=== PATIENT | female | born 1950 | race Two or more races ===

== ENCOUNTER 2024-10-26 09:46 | Emergency (ER) | payer OTHER, SELFPAY ==
--- NOTE | ~2024-10-26 | XR_ITS ---
CLINICAL HISTORY: R shoulder pain s p heavy lifting 4 view right shoulder Comparison: None Findings: No fractures or dislocations. No significant arthritic change. No erosions. No radiopaque foreign body. There is calcific tendinitis adjacent to the greater tuberosity. IMPRESSION: There is calcific tendinitis adjacent to the greater tuberosity. This document has been electronically signed by: Humberto Aguero MD on 10/26/2024 11:08:08
[2024-10-26 09:50] VITALS: BP 127/80; PULSE 87; RESP 16; TEMP 35.7; O2SAT 96; BMI 33.8
--- NOTE | 2024-10-26 10:07 | ED_ITS ---
HPI - Extremity Problem General Chief complaint: Extremity Injury, Upper Stated complaint: l shoulder pain Time Seen by Provider: 10/26/24 10:07 Source: patient and hydropulper operator (surinamese) Mode of arrival: ambulatory Limitations: language barrier (surinamese) History of Present Illness ED Provider: ANNE NOONAN PA-C HPI Narrative: 73-year-old female with pmhx significant for DM, HTN, HLD presents to the ED today for evaluation of right-sided neck/shoulder pain x3 weeks. She states the pain began after lifting/ moving a heavy table at home. Pain is localized to right neck/ shoulder region. Does not extend down her RUE. Pain is worse with movement of the neck and shoulder. Denies any decreased range of motion. She was evaluated at for this 1 week ago. She was prescribed a muscle relaxer which she has been taking without improvement. Denies blunt injury/trauma. Denies headache, dizziness, vision changes, chest pain, palpitations, SOB. scaffold builder utilized throughout visit to communicate with patient. Related Data Previous Rx's ?Medication ?Instructions ?Recorded lidocaine 5 % topical patch 1 patch topical DAILY #15 ea 10/26/24 (Lidoderm) prednisone 20 mg tablet 40 mg (2 x 20 mg) PO DAILY 5 days 10/26/24 #10 tabs Allergies Allergy/AdvReac Type Severity Reaction Status Date / Time No Known Allergies Allergy Verified 10/26/24 09:52 Review of Systems Review of Systems: Yes all other systems are reviewed and are negative PMFSH Past Medical History Attestation statement: The following information was validated with the patient. Source: old records reviewed and nursing notes reviewed Social History Social History Advance Directives: No Advance Directives Information Provided: Yes Physical Exam Vital Signs: Vital Signs: Last Vital Signs Temp 96.3 F L 10/26/24 09:50 Pulse 87 10/26/24 09:50 Resp 16 10/26/24 09:50 BP 127/80 10/26/24 09:50 Pulse Ox 96 10/26/24 09:50 O2 Del Method Room Air 10/26/24 09:50 BMI result Body Mass Index 33.8 vital signs stable General: Well appearing, in no acute distress. Skin: Warm, dry, intact. No rashes or lesions. Head: Normocephalic, atraumatic. EENT: Hearing is intact b/l. Conjunctiva clear. PERRLA. EOM intact. Moist mucous membranes.? Cardiac: Chest wall symmetric. RRR Lungs: Normal respiratory effort without accessory muscle use. CTA bilaterally Back: No midline spinous or paraspinal tenderness. No step off deformity. Ext: +no overlying deformity, skin changes or swelling to the right shoulder. Full ROM intact to right shoulder with minimal pain on abduction. Coiled Coil Inspector strength intact. Full ROM intact to C-spine with minimal pain on leftward motion. no midline spinous tenderness or step off. ttp along right cervical paraspinal muscles/ trapezius and around right AC joint. no crepitus or palpable deformity. 2+ radial/ ulnar pulse intact. Neuro: AOx3. Normal speech. Ambulating with steady gait. Course Course Course Narrative: xr right shoulder showing calcific tendonitis adjacent to the greater tuberosity. patient on elquis - will hold on NSAIDs. after discussion with patient, will prescribe short course of prednisone and lidocaine patches. Advised to monitor her blood sugar at home as she was diabetic. Advised to discontinue prednisone use if sugars become too elevated. Informed patient that she will need to follow up with her primary care provider for PT and likely corticosteroid injections. She verbalizes understanding. Patient has remained stable throughout ED visit today. Discussed worrisome signs and symptoms and when to return to the ED. All questions answered at this time. Patient is agreeable with disposition and stable for discharge. Medications Administered Discontinued Medications Generic Name Dose Route Start Last Admin Trade Name Shyam PRN Reason Stop Dose Admin Acetaminophen 650 mg 10/26/24 10:50 10/26/24 10:53 Acetaminophen 325 Mg Tablet PO 10/26/24 10:51 650 mg ONCE ONE Administration Lidocaine 1 patch 10/26/24 10:23 10/26/24 10:53 Lidocaine 4 % Patch Adh..Patch TRANSDERMA 10/26/24 10:24 1 patch ONCE ONE Administration Protocol Medical Decision Making Medical Decision Making MDM Narrative: 73-year-old female with pmhx significant for DM, HTN, HLD presents to the ED today for evaluation of right-sided neck/shoulder pain x3 weeks. Vital signs stable. Nontoxic appearing and in no acute distress. On exam, no overlying deformity, skin changes or swelling to the right shoulder. Full ROM intact to right shoulder with minimal pain on abduction. Coiled Coil Inspector strength intact. Full ROM intact to C-spine with minimal pain on leftward motion. no midline spinous tenderness or step off. ttp along right cervical paraspinal muscles/ trapezius and around right AC joint. no crepitus or palpable deformity. 2+ radial/ ulnar pulse intact. Differential diagnosis includes arthritis, tendonitis, bursitis, MSK sprain/strain, muscle spasm. Lower suspicion for fracture or dislocation. Presentation not consistent with gout. pseudogout, septic joint, lyme arthritis. Unlikely DVT, nv compromise, threat to limb. Unlikely ACS. Plan for xrays, pain control, and re-evaluation. Differential Diagnosis Differential Diagnoses: The differential diagnosis associated with the presentation includes as above. Admission/Observation not indicated. Independent Interpretation I performed an independent interpretation of an: Plain X-Ray Interpretation: xr right shoulder without fracture or dislocation Radiology Impression Discussion of test interpretation with radiology: I have reviewed the radiologist's reading. Radiologist Impression: Procedure(s): XR shoulder RT min 2V Accession Number(s): [id number] cc: Physician,Unknown ; Anne Noonan~ CLINICAL HISTORY: R shoulder pain s p heavy lifting 4 view right shoulder Comparison: None Findings: No fractures or dislocations. No significant arthritic change. No erosions. No radiopaque foreign body. There is calcific tendinitis adjacent to the greater tuberosity. IMPRESSION: There is calcific tendinitis adjacent to the greater tuberosity. This document has been electronically signed by: Humberto Aguero MD on 10/26/2024 11:08:08 Prescription Management I considered prescription management with: Pain Medication and Other (prednisone, lido patch) Chronic Conditions Patient?s care impacted by: Diabetes and Hypertension Social Determinants Patient?s care significantly limited by Social Determinants of Health including: Other Social Determinant of Health Critical Care Time Critical Care Time Critical Care Time: No Discharge Plan Discharge Clinical Impression: Calcific tendonitis of right shoulder Patient Disposition: Home, Self-Care Instructions: Calcific Tendinitis (ED) Additional Instructions: The xray of your right shoulder shows calcific tendonitis. see home care instructions. Since you cannot take NSAIDs, I am sending Prednisone to your pharmacy to help with inflammation. Take this as prescribed over the next 5 days. As discussed, monitor your blood sugar while taking this as this can elevate blood sugar. If you notice an increase in your sugars, please discontinue use. You may take Tylenol at home for pain/ discomfort. I am sending lidocaine patches to your pharmacy. Apply these as prescribed. You need to follow up with your primary care provider. You will likely require physical therapy. Return with any new or worsening symptoms. In the case of an emergency call 911. Prescriptions: New lidocaine [Lidoderm] 5 % adhesive patch,medicated 1 patch topical DAILY Qty: 15 0RF Rx Instructions: leave on most painful area for up to 12 hrs prednisone 20 mg tablet 40 mg PO DAILY 5 Days Qty: 10 0RF Referrals: Physician,Unknown J [Primary Care Provider] - Print Language: Finnish
[2024-10-26] MEDS: Acetaminophen 325 MG TABLET 650 MG PO (10:53)
[2024-10-26] MEDS: Lidocaine 4 % Patch ADH..PATCH 1 PATCH TRANSDERMA (10:53)
[2024-10-26 11:54] VITALS: BP 127/80; PULSE 87; RESP 16; TEMP 36; O2SAT 96
== END 2024-10-26 11:54 | disposition home or self-care (01) ==
PROVIDERS: Emergency Provider Internal Medicine
DX: M77.8 Other enthesopathies, not elsewhere classified (principal); M25.511 Pain in right shoulder
CPT/HCPCS: 73030; 99283

== ENCOUNTER → 2024-10-26 10:23 | Outpatient (BNV) | payer OTHER, SELFPAY | PROVIDERS: Emergency Provider Internal Medicine; Visit Provider Radiology Diagnostic Radiology | DX: M75.31 Calcific tendinitis of right shoulder (principal) | CPT/HCPCS: 73030 ==

== ENCOUNTER 2025-03-23 09:49 | Emergency (ER) | payer OTHER, SELFPAY ==
[2025-03-23] VITALS (8 sets, daily range): BP systolic 119–154; BP diastolic 63–96; PULSE 90–140; RESP 15–19; TEMP 36.3–36.9; O2SAT 96–99; BMI 32.4
--- NOTE | 2025-03-23 | ECG_ITS ---
Test Reason : ABD PAIN Blood Pressure : */* mmHG Vent. Rate : 119 BPM Atrial Rate : * BPM P-R Int : * ms QRS Dur : 70 ms QT Int : 306 ms P-R-T Axes : * 11 19 degrees QTcB Int : 430 ms Atrial fibrillation with rapid ventricular response Nonspecific ST and T wave abnormality Abnormal ECG No previous ECGs available Referred By: Generic ED Physician Electronically Signed By: MARLEEN HILL
--- NOTE | ~2025-03-23 | CT_ITS ---
CLINICAL HISTORY: left flank pain CT abdomen and pelvis without contrast Comparison: None provided Findings: The lung bases are clear. Diffuse fatty infiltration of the liver. Liver is normal in size. The gallbladder, spleen, adrenal glands, pancreas are unremarkable. Nonobstructing 2 mm stone in the lower pole of the right kidney. No hydronephrosis of either kidney. No ureteral stones. No bowel obstruction, pneumoperitoneum, or pneumatosis. Uterus and adnexa are unremarkable. Normal appendix. Urinary bladder is decompressed. No acute fracture. Degenerative changes of the lower lumbar spine. IMPRESSION: No acute findings. No obstructive uropathy. This document has been electronically signed by: Dedrick Rubio MD on 03/23/2025 11:39:23
[2025-03-23 10:44] LABS: MANUAL DIFF FLAG NO
--- NOTE | 2025-03-23 10:44 | ED_ITS ---
HPI - Abdominal Pain General Chief Complaint: Abdominal Pain Stated Complaint: pain in left abd, nausea Time Seen by Provider: 03/23/25 10:06 Source: patient Mode of arrival: ambulatory Limitations: no limitations History of Present Illness HPI narrative: This is 74 years old female with a history of paroxysmal atrial fibrillation on Eliquis presented to emergency department complaining of abdominal pain localized in the left flank pain he has been ongoing for few days she also has nausea MD elicited complaint: abdominal pain and flank pain Pertinent past history: other (Atrial fibrillation paroxysmal anticoagulated) Onset (ago): day(s) (3) Pain Consistency: constant Location: LUQ and LLQ Severity: moderate Quality: cramping Radiation: none Migration to: no migration Exacerbating factors: nothing Related Data Previous Rx's ?Medication ?Instructions ?Recorded lidocaine 5 % topical patch 1 patch topical DAILY #15 ea 10/26/24 (Lidoderm) prednisone 20 mg tablet 40 mg (2 x 20 mg) PO DAILY 5 days 10/26/24 #10 tabs metoprolol succinate 25 mg 25 mg PO DAILY #60 tabs tablet,extended release 24 hr (Toprol XL) omeprazole magnesium 20 mg 20 mg PO DAILY #20 tabs tablet,delayed release (Prilosec OTC) Allergies Allergy/AdvReac Type Severity Reaction Status Date / Time No Known Allergies Allergy Verified 03/23/25 09:59 Review of Systems Constitutional: Reports no additional constitutional complaints Reports system reviewed and no additional complaints, except as documented [facility] Past Medical History [facility] Narrative: Paroxysmal atrial fibrillation anticoagulated with Eliquis, hypertension Social History Social History Smoked in Last 30 Days: No Use of substances other than those prescribed or required for medical reasons: No Advance Directives: No Advance Directives Information Provided: No Do you have a plan to hurt others: No Plan Physical Exam ED Exam Exam: No acute distress Vital Signs: Vital Signs - 24 hr 03/23/25 09:57 03/23/25 10:00 03/23/25 10:51 Temperature 97.4 F 98.4 F Pulse Rate 115 H 114 H 140 H Respiratory Rate 16 19 18 Blood Pressure 135/69 154/63 H 143/96 H Pulse Oximetry 97 96 98 Oxygen Delivery Method Room Air Room Air Room Air 03/23/25 10:57 03/23/25 11:51 03/23/25 13:26 Temperature Pulse Rate 90 97 109 H Respiratory Rate 15 16 Blood Pressure 142/91 H 129/80 131/68 Pulse Oximetry 97 99 Oxygen Delivery Method Room Air Room Air 03/23/25 13:26 03/23/25 15:19 Temperature 98.2 F 97.8 F Pulse Rate 113 H 95 Respiratory Rate 18 18 Blood Pressure 131/68 119/80 Pulse Oximetry 99 97 Oxygen Delivery Method Room Air Room Air BMI result Body Mass Index 32.4 Const General: cooperative Nutritional Appearance: average body habitus Orientation/consciousness: patient oriented x3 HENMT Head: Yes normal to inspection Face and sinus: Yes normal facial exam Mouth: Normal oral and palatal mucosa present Throat: Yes posterior oropharynx normal Neck Neck: Yes normal visual inspection Chest Chest palpation & inspection: normal inspection of the chest Resp Effort & Inspection: normal respiratory effort Cardio Jugular venous distension: no JVD Palpation: normal PMI Rate: regular rate Rhythm: regular rhythm GI Other: Tenderness in the left flank Palpation (GI): Soft to palpation Skin General skin exam: no rashes or lesions noted and elasticity normal Lesions: no lesions Rashes: no rashes Trauma: no lacerations or abrasions Neuro General: patient oriented x3 Course Reevaluation(s) Reevaluation #1: Doing much better at this time heart rate is 95 respiration 18 blood pressure 119/80 Time: 15:24 Medical Decision Making Medical Decision Making MDM Narrative: Patient is here with the abdominal pain we will obtain imaging and blood work @3:22 PM patient is doing much better initially she was a rapid AFib she received 5 mg of IV Lopressor and 25 p.o. metoprolol succinate, she states she ran out of the metoprolol. Heart rate is now 95 she is already anticoagulated on Eliquis. I think at this point she can be discharged home I gave a prescription for metoprolol. A CAT scan of the abdomen and pelvis was normal the chemistry and UA were normal, abdomen is soft and nontender with consented home with the abdominal pain obstruction and I will give a prescription for omeprazole. The patient is very comfortable with the plan of care. Differential Diagnosis Differential Diagnoses: The differential diagnosis associated with the presentation includes Kidney stone/colitis/diverticular Admission/Observation Consideration of admission/observation: Escalation of care including admission/observation considered Lab Data MDM Lab Attestation statement: I reviewed the patient's lab results. 03/23/25 10:27 03/23/25 10:27 Labs: Lab Results 03/23/25 03/23/25 Range/Units 10:27 10:29 WBC 8.6 (4.8-10.8) X10*3/uL RBC 5.12 (4.20-5.50) X10*6/uL Hgb 14.7 (12.0-16.0) g/dl Hct 43.2 (37.0-47.0) % MCV 84.4 (80.0-98.0) fL MCH 28.7 (27.0-33.0) pg MCHC 34.0 (31.0-35.0) g/dl RDW 12.9 (11.0-16.0) % Plt Count 291 (160-400) X10*3/uL MPV 11.1 (9.4-12.3) fL Immature Gran % (Auto) 0.1 (0.0-0.4) % Neut % (Auto) 63.5 (45-73) % Lymph % (Auto) 26.9 (20-40) % [place] % (Auto) 7.0 (2-11) % Eos % (Auto) 2.2 (0-4) % Baso % (Auto) 0.3 (0-2) % Lymph # (Auto) 2.3 (1.2-4.9) X10*3/uL [place] # (Auto) 0.6 (0.1-1.2) X10*3/uL Eos # (Auto) 0.2 (0.0-0.4) X10*3/uL Baso # (Auto) 0.0 (0.0-0.2) X10*3/uL Abs Immat Gran (auto) 0.01 (0.00-0.03) X10*3/uL Absolute Neuts (auto) 5.5 (2.0-8.3) x10*3/uL Absolute Nucleated RBC 0.000 (0.0-0.012) X10*3/uL Nucleated RBC % (auto) 0.0 (0.0-0.2) /100WBC Sodium 137 (135-145) mmol/L Potassium 3.6 (3.3-5.1) mmol/L Chloride 101 (96-108) mmol/L Carbon Dioxide 23 (22-29) mmol/L Anion Gap 17 (12-20) BUN 18 H (9-16) mg/dL Creatinine 0.98 (0.5-1.4) mg/dL Estim Creat Clear Calc 48.2 Estimated GFR 56 Random Glucose 218 H (60-115) mg/dL Calcium 9.8 (8.4-10.2) mg/dL Total Bilirubin 0.9 (0.0-1.0) mg/dL AST 19 (5-31) U/L ALT 13 (0-31) U/L Alkaline Phosphatase 72 (39-117) U/L Troponin I High Sens 2.8 (<3.5-17.0) ng/L Total Protein 8.1 H (6.5-8.0) g/dL Albumin 4.6 (3.5-5.0) g/dL Lipase 22 (8-78) U/L Urine Color Dark Yellow Urine Appearance Cloudy Urine pH 5.5 (5.0-9.0) Ur Specific [place] 1.025 (1.005-1.025) Urine Protein 100 (2+) H (Neg-Trace) mg/dL Urine Glucose (UA) Negative (Negative) mg/dL Urine Ketones Trace (Negative) mg/dL Urine Blood Negative (Negative) Urine Nitrite Negative (Negative) Ur Leukocyte Esterase Trace H (Negative) Urine RBC 0-2 (0-2) /HPF Urine WBC 0-5 (0-5) /HPF Ur Squamous Epith Cells 6-10 (0-2) /HPF Urine Bacteria None Seen (None Seen) Hyaline Casts >20 (0-2) /LPF Independent Interpretation I performed an independent interpretation of an: EKG and CT Scan (CT scan abdomen and pelvis negative) Interpretation: Rapid atrial fibrillation ventricular rate 128 Radiology Impression Discussion of test interpretation with radiology: I have reviewed the radiologist's reading. Radiologist Impression: No acute disease Chronic Conditions Patient?s care impacted by: Other (AFib) Medications Administered Discontinued Medications Generic Name Dose Route Start Last Admin Trade Name Freq PRN Reason Stop Dose Admin Metoprolol Succinate 25 mg 03/23/25 13:03 03/23/25 13:26 Metoprolol Succinate Er 25 Mg Tab.Er.24h PO 03/23/25 13:04 25 mg ONCE ONE Administration Protocol Metoprolol Tartrate 5 mg 03/23/25 10:37 03/23/25 10:51 Metoprolol Tartrate 5 Mg/5 Ml Vial IVPUSH 03/23/25 10:38 5 mg ONCE ONE Administration Protocol Critical Care Time Critical Care Time Critical Care Time: Yes Total Critical Care Time: 60 Attestation: Rapid AFib requiring IV metoprolol Discharge Plan Discharge Clinical Impression: Atrial fibrillation with RVR, Abdominal pain in female patient Patient Disposition: Home, Self-Care Instructions: A-fib (Atrial Fibrillation) (ED), Abdominal Pain (ED) Additional Instructions: Follow-up with your primary care physician we sent a prescription for your for metoprolol XL 25 mg and Prilosec to your pharmacy Prescriptions: New metoprolol succinate [Toprol XL] 25 mg tablet extended release 24 hr 25 mg PO DAILY Qty: 60 0RF omeprazole magnesium [Prilosec OTC] 20 mg tablet,delayed release (DR/EC) 20 mg PO DAILY Qty: 20 0RF No Action lidocaine [Lidoderm] 5 % adhesive patch,medicated 1 patch topical DAILY Qty: 15 0RF Rx Instructions: leave on most painful area for up to 12 hrs prednisone 20 mg tablet 40 mg PO DAILY 5 Days Qty: 10 0RF Referrals: Lexi Garcia MD [Primary Care Provider, Internal Medicine] - 03/25/25 Print Language: Vietnamese
[2025-03-23 10:46] LABS: Hematocrit 43.2 % (37.0-47.0); Hemoglobin 14.7 g/dl (12.0-16.0); Imm Gran Abs Auto 0.01 X10*3/uL (0.00-0.03); Imm Gran Pct Auto 0.1 % (0.0-0.4); Lymphocytes Absolute Auto 2.3 X10*3/uL (1.2-4.9); Mean Corpuscular HGB Conc 34.0 g/dl (31.0-35.0); Mean Corpuscular Hemoglobin 28.7 pg (27.0-33.0); Mean Corpuscular Volume 84.4 fL (80.0-98.0); NRBC Abs Auto 0.000 X10*3/uL (0.0-0.012); NRBC Pct Auto 0.0 /100WBC (0.0-0.2); Platelet Count 291 X10*3/uL (160-400); Red Blood Count 5.12 X10*6/uL (4.20-5.50); White Blood Count 8.6 X10*3/uL (4.8-10.8)
[2025-03-23 10:50] LABS: Appearance Urine Cloudy; Glucose Urine UA Negative (Negative); PH 5.5 (5.0-9.0); Specific Gravity - Urine 1.025 (1.005-1.025); UMIC TRIGGER UACC YES
--- NOTE | 2025-03-23 10:58 | PC.NURSE ---
Upon arrival to ED 14- pt placed on cardiac rehabilitation program director, HR noted to be between 120s-150s. Highest HR reached 170s. MD Wang made aware. chief information officer at bedside obtaining labs and EKG. 20g IV placed R ac- 5mg IVP Metoprolol given per SEP. Pt denies CP/SOB/palpitations/dizziness. Known cardiac hx of paroxysmal afib- takes eliquis, med compliant. Pt BP 140s/90s- cycling 15 min to monitor/continuous O2 prob on patient. HR decreased to high 90s. Pt a/ox3, respirations even and unlabored, no increased wob/sob noted, denies CP/SOB. Pt updated on plan of care. Call maldonado within reach, all needs met at this time.
[2025-03-23 11:06] LABS: Alanine Aminotransferase 13 U/L (0-31); Albumin Level 4.6 g/dL (3.5-5.0); Alkaline Phosphatase 72 U/L (39-117); Anion Gap 17 (12-20); Aspartate Amino Transferase 19 U/L (5-31); Blood Urea Nitrogen 18 mg/dL (9-16); Calcium 9.8 mg/dL (8.4-10.2); Carbon Dioxide 23 mmol/L (22-29); Chloride 101 mmol/L (96-108); Creatinine Clr Calc Pharmacy 48.2; Estimated Glomerular Filt Rate 56; Potassium 3.6 mmol/L (3.3-5.1); Sodium 137 mmol/L (135-145); Total Protein 8.1 g/dL (6.5-8.0)
[2025-03-23 11:22] LABS: Troponin-I High Sensitivity 2.8 ng/L (<3.5-17.0)
[2025-03-23 11:48] LABS: Lipase 22 U/L (8-78)
[2025-03-23] MEDS: Metoprolol Succinate ER 25 MG TAB.ER.24H PO (13:26)
== END 2025-03-23 15:32 | disposition home or self-care (01) ==
PROVIDERS: Emergency Provider Emergency Medicine; PCP Internal Medicine
DX: I48.0 Paroxysmal atrial fibrillation (principal); Z79.01 Long term (current) use of anticoagulants; R10.9 Unspecified abdominal pain
CPT/HCPCS: 36415; 74176; 80053; 81001; 83690; 84484; 85025; 93005; 96374; 99284; 99285; J0616

== ENCOUNTER → 2025-03-23 10:20 | Outpatient (BNV) | payer OTHER, SELFPAY | PROVIDERS: Emergency Provider Emergency Medicine; PCP Internal Medicine; Visit Provider Internal Medicine | DX: I48.91 Unspecified atrial fibrillation (principal) | CPT/HCPCS: 93010 ==

== ENCOUNTER → 2025-03-23 10:48 | Outpatient (BNV) | payer OTHER, SELFPAY | PROVIDERS: Emergency Provider Emergency Medicine; PCP Internal Medicine; Visit Provider Radiology Diagnostic Radiology | DX: R10.32 Left lower quadrant pain (principal); R10.12 Left upper quadrant pain | CPT/HCPCS: 74176 ==